=== PATIENT | male | born 1950 | race Hispanic/Latino ===

== ENCOUNTER 2022-08-25 16:23 | Inpatient (IN) | payer MEDICARE, OTHER ==
[~2022-08-25] VITALS: Ht 172.7 cm; Wt 65.3 kg
[2022-08-25 18:02] VITALS: BP 107/77
[2022-08-25] MEDS ORDERED: NITROGLYCERIN 0.4 MG SL TAB SL PRN (18:30)
[2022-08-25] MEDS ORDERED: MAG/ALUM/SIMETH 30 ML UDCUP PO PRN (18:30)
[2022-08-25] MEDS ORDERED: DIPHENHYDRAMINE HCL 25 MG CAPSULE PO PRN (18:30)
[2022-08-25] MEDS ORDERED: GUAIFENESIN-DM 200/20 MG 10 ML PO PRN (18:30)
[2022-08-25] MEDS ORDERED: HYDROMORPHONE 1 MG INJ IV PRN (18:30)
[2022-08-25] MEDS ORDERED: DiphenhydrAMINE HCL 50 MG/ML VIAL IV PRN (18:30)
[2022-08-25] MEDS ORDERED: ACETAMINOPHEN 325 MG TAB PO PRN ×2 (18:30)
[2022-08-25] MEDS ORDERED: ONDANSETRON 4MG INJ IV PRN (18:30)
[2022-08-25] MEDS ORDERED: LACTULOSE 20 GM/30 ML UDCUP PO PRN (18:30)
[2022-08-25] MEDS ORDERED: POTASSIUM CHLORIDE 20MEQ/100ML 100 ML IV PRN (18:30)
[2022-08-25] MEDS ORDERED: LIDOCAINE HCL-MPF 1% 2ML VIAL IV PRN (18:30)
[2022-08-25] MEDS ORDERED: HYDROCODONE/ACETAMINOPHEN 5/325 MG TAB PO PRN ×2 (18:30)
[2022-08-25 18:58] LABS: BASOPHILS % (AUTO) 0.4 % (0.0-5.0); EOSINOPHILS % (AUTO) 0.4 % (0.0-8.0); HEMATOCRIT 44.2 % (42-54); MEAN CORPUSCULAR HEMOGLOBIN 29.4 pg (27.0-33.0); MEAN CORPUSCULAR HGB CONC 30.8 g/dL (32.0-36.0); MEAN CORPUSCULAR VOLUME 95.5 fL (79-99); MONOCYTES % (AUTO) 10.1 % (3.0-13.0); NEUTROPHILS % (AUTO) 74.6 % (40.0-77.0); PLATELET COUNT (AUTO) 152 K/uL (130-400); RED BLOOD CELL COUNT(AUTO) 4.63 MIL/uL (4.50-6.20); RED CELL DISTRIBUTION WIDTH 16.5 % (11.0-15.5); WHITE BLOOD COUNT (AUTO) 8.2 K/uL (4.8-10.8)
[2022-08-25 19:09] LABS: HEMOGLOBIN A1C 5.3 % (4.0-6.0)
[2022-08-25 19:16] LABS: INR 1.26 (0.85-1.15); PROTHROMBIN TIME 13.6 SEC (9.6-11.6)
[2022-08-25 19:18] LABS: PARTIAL THROMBOPLASTIN TIME 33.9 SEC (26.3-35.5)
[2022-08-25 19:19] LABS: B-TYPE NATRIURETIC PEPTIDE 1560 pg/mL (0-100)
[2022-08-25 19:25] LABS: ALBUMIN 2.6 g/dL (3.5-5.0); CREATININE 1.8 mg/dL (0.5-1.5); MAGNESIUM 1.8 mg/dL (1.80-2.40); PHOSPHORUS 3.5 mg/dL (2.5-4.9); POTASSIUM 4.4 mmol/L (3.5-5.1); THYROID STIMULATING HORMONE 4.24 uIU/mL (0.36-3.74); TOTAL PROTEIN, SERUM 6.3 g/dL (6.0-8.3)
[2022-08-25 19:51] VITALS: BP 122/86
[2022-08-25] MEDS: ATORVASTATIN 40 MG TABLET PO SCH (20:01)
[2022-08-25] MEDS: METOPROLOL TARTRATE 25 MG TAB PO SCH (20:01)
[2022-08-25] MEDS: FAMOTIDINE 20MG TAB PO SCH (20:02)
[2022-08-25] MEDS: HEPARIN 5,000 UNIT VIAL SQ SCH (20:09)
[2022-08-25] MEDS: FUROSEMIDE 40MG VIAL IV SCH (20:10)
[2022-08-25] MEDS ORDERED: FAMOTIDINE 20MG VIAL IV PRN (21:00)
[2022-08-25] MEDS ORDERED: ATOR10TA69 PO (21:41)
[2022-08-25] MEDS ORDERED: ASPI-1521 PO (21:41)
[2022-08-25] MEDS ORDERED: FURO20TA4 PO (21:41)
[2022-08-25] MEDS ORDERED: CHOL500050 PO (21:41)
[2022-08-25] MEDS ORDERED: OMEP40CA21 PO (21:41)
[2022-08-25] MEDS ORDERED: METO25 PO (21:41)
[2022-08-26] VITALS (7 sets, daily range): BP systolic 92–110; BP diastolic 52–72
[2022-08-26 02:58] LABS: BASOPHILS % (AUTO) 0.4 % (0.0-5.0); EOSINOPHILS % (AUTO) 1.1 % (0.0-8.0); HEMATOCRIT 41.4 % (42-54); LYMPHOCYTES % (AUTO) 19.6 % (21.0-51.0); MEAN CORPUSCULAR HEMOGLOBIN 29.6 pg (27.0-33.0); MEAN CORPUSCULAR HGB CONC 31.2 g/dL (32.0-36.0); MONOCYTES % (AUTO) 13.2 % (3.0-13.0); NEUTROPHILS % (AUTO) 65.4 % (40.0-77.0); PLATELET COUNT (AUTO) 141 K/uL (130-400); RED BLOOD CELL COUNT(AUTO) 4.36 MIL/uL (4.50-6.20); RED CELL DISTRIBUTION WIDTH 16.5 % (11.0-15.5); WHITE BLOOD COUNT (AUTO) 7.4 K/uL (4.8-10.8)
[2022-08-26 03:18] LABS: CREATININE 1.7 mg/dL (0.5-1.5); POTASSIUM 3.6 mmol/L (3.5-5.1)
[2022-08-26] MEDS: FUROSEMIDE 40MG VIAL IV SCH ×3 (03:25→21:00)
[2022-08-26] MEDS: ASPIRIN 81MG CHEW TAB PO SCH (08:50)
[2022-08-26] MEDS: METOPROLOL TARTRATE 25 MG TAB PO SCH ×2 (08:55→21:00)
[2022-08-26] MEDS: CLOPIDOGREL 75MG TAB PO SCH (08:55)
[2022-08-26] MEDS: HEPARIN 5,000 UNIT VIAL SQ SCH ×3 (08:56→21:10)
[2022-08-26] MEDS: FAMOTIDINE 20MG TAB PO SCH ×2 (08:56→21:00)
[2022-08-26 17:48] LABS: MAGNESIUM 1.7 mg/dL (1.80-2.40); POTASSIUM 3.9 mmol/L (3.5-5.1)
[2022-08-26] MEDS: MAGNESIUM 2GM PREMIX 50ML 50 ML IV PRN (18:12)
[2022-08-26 20:39] LABS: HEMATOCRIT 44.2 % (42-54); MEAN CORPUSCULAR HEMOGLOBIN 29.4 pg (27.0-33.0); MEAN CORPUSCULAR HGB CONC 31.9 g/dL (32.0-36.0); MEAN CORPUSCULAR VOLUME 92.1 fL (79-99); PLATELET COUNT (AUTO) 148 K/uL (130-400); RED CELL DISTRIBUTION WIDTH 16.5 % (11.0-15.5); WHITE BLOOD COUNT (AUTO) 7.9 K/uL (4.8-10.8)
[2022-08-26 20:44] LABS: BASOPHILS % (AUTO) 0.5 % (0.0-5.0); EOSINOPHILS % (AUTO) 0.5 % (0.0-8.0); LYMPHOCYTES % (AUTO) 19.1 % (21.0-51.0); MONOCYTES % (AUTO) 11.9 % (3.0-13.0); NEUTROPHILS % (AUTO) 67.7 % (40.0-77.0)
[2022-08-26 21:01] LABS: MAGNESIUM 2.4 mg/dL (1.80-2.40); POTASSIUM 3.3 mmol/L (3.5-5.1)
[2022-08-26] MEDS: ATORVASTATIN 40 MG TABLET PO SCH (21:01)
[2022-08-27] MEDS: FUROSEMIDE 40MG VIAL IV SCH ×3 (03:39→20:00)
[2022-08-27 04:02] LABS: BASOPHILS % (AUTO) 0.7 % (0.0-5.0); EOSINOPHILS % (AUTO) 0.7 % (0.0-8.0); HEMATOCRIT 43.7 % (42-54); MEAN CORPUSCULAR HEMOGLOBIN 29.5 pg (27.0-33.0); MEAN CORPUSCULAR HGB CONC 30.9 g/dL (32.0-36.0); MEAN CORPUSCULAR VOLUME 95.6 fL (79-99); MONOCYTES % (AUTO) 14.4 % (3.0-13.0); PLATELET COUNT (AUTO) 151 K/uL (130-400); RED BLOOD CELL COUNT(AUTO) 4.57 MIL/uL (4.50-6.20); RED CELL DISTRIBUTION WIDTH 16.7 % (11.0-15.5); WHITE BLOOD COUNT (AUTO) 8.3 K/uL (4.8-10.8)
[2022-08-27 04:20] LABS: CREATININE 2.1 mg/dL (0.5-1.5); POTASSIUM 3.3 mmol/L (3.5-5.1)
[2022-08-27 05:03] VITALS: BP 91/59
[2022-08-27] MEDS: KCL 20 MEQ ERTAB PO PRN (05:38)
[2022-08-27 08:00] VITALS: BP 101/59
[2022-08-27] MEDS: KCL 20 MEQ ERTAB PO SCH (08:58)
[2022-08-27] MEDS: ASPIRIN 81MG CHEW TAB PO SCH (08:58)
[2022-08-27] MEDS: HEPARIN 5,000 UNIT VIAL SQ SCH ×3 (09:00→20:05)
[2022-08-27] MEDS: METOPROLOL TARTRATE 25 MG TAB PO SCH ×2 (09:03→20:00)
[2022-08-27] MEDS: CLOPIDOGREL 75MG TAB PO SCH (09:03)
[2022-08-27] MEDS: FAMOTIDINE 20MG TAB PO SCH ×2 (09:03→20:01)
[2022-08-27 12:00] VITALS: BP 111/76
[2022-08-27 16:00] VITALS: BP 103/75
[2022-08-27 19:00] VITALS: BP 102/70
[2022-08-27] MEDS: ATORVASTATIN 40 MG TABLET PO SCH (20:01)
[2022-08-28 00:03] VITALS: BP 95/65
[2022-08-28 03:03] VITALS: BP 97/50
[2022-08-28 04:16] LABS: BASOPHILS % (AUTO) 0.6 % (0.0-5.0); EOSINOPHILS % (AUTO) 0.5 % (0.0-8.0); HEMATOCRIT 43.3 % (42-54); LYMPHOCYTES % (AUTO) 23.5 % (21.0-51.0); MEAN CORPUSCULAR HEMOGLOBIN 29.4 pg (27.0-33.0); MEAN CORPUSCULAR HGB CONC 31.4 g/dL (32.0-36.0); MEAN CORPUSCULAR VOLUME 93.5 fL (79-99); MONOCYTES % (AUTO) 13.4 % (3.0-13.0); NEUTROPHILS % (AUTO) 61.7 % (40.0-77.0); PLATELET COUNT (AUTO) 149 K/uL (130-400); RED BLOOD CELL COUNT(AUTO) 4.63 MIL/uL (4.50-6.20); RED CELL DISTRIBUTION WIDTH 16.5 % (11.0-15.5); WHITE BLOOD COUNT (AUTO) 7.7 K/uL (4.8-10.8)
[2022-08-28 04:26] LABS: CREATININE 2.2 mg/dL (0.5-1.5); POTASSIUM 3.8 mmol/L (3.5-5.1)
[2022-08-28 08:08] VITALS: BP 100/59
[2022-08-28] MEDS: FUROSEMIDE 40MG VIAL IV SCH ×2 (08:38→08:50)
[2022-08-28] MEDS: ASPIRIN 81MG CHEW TAB PO SCH (08:39)
[2022-08-28] MEDS: METOPROLOL TARTRATE 25 MG TAB PO SCH ×3 (08:40→20:11)
[2022-08-28] MEDS: FAMOTIDINE 20MG TAB PO SCH ×2 (08:40→20:11)
[2022-08-28] MEDS: CLOPIDOGREL 75MG TAB PO SCH (08:40)
[2022-08-28] MEDS: KCL 20 MEQ ERTAB PO SCH (08:40)
[2022-08-28] MEDS: HEPARIN 5,000 UNIT VIAL SQ SCH ×3 (08:56→20:12)
[2022-08-28 11:58] VITALS: BP 97/52
[2022-08-28 15:58] VITALS: BP 92/64
[2022-08-28 19:03] VITALS: BP 109/70
[2022-08-28] MEDS: ATORVASTATIN 40 MG TABLET PO SCH (20:11)
[2022-08-29] VITALS (7 sets, daily range): BP systolic 90–104; BP diastolic 58–74
[2022-08-29 04:23] LABS: BASOPHILS % (AUTO) 0.5 % (0.0-5.0); EOSINOPHILS % (AUTO) 0.6 % (0.0-8.0); HEMATOCRIT 42.7 % (42-54); MEAN CORPUSCULAR HEMOGLOBIN 29.5 pg (27.0-33.0); MEAN CORPUSCULAR HGB CONC 31.4 g/dL (32.0-36.0); MEAN CORPUSCULAR VOLUME 93.8 fL (79-99); MONOCYTES % (AUTO) 11.4 % (3.0-13.0); PLATELET COUNT (AUTO) 154 K/uL (130-400); RED BLOOD CELL COUNT(AUTO) 4.55 MIL/uL (4.50-6.20); RED CELL DISTRIBUTION WIDTH 16.6 % (11.0-15.5); WHITE BLOOD COUNT (AUTO) 8.5 K/uL (4.8-10.8)
[2022-08-29 04:42] LABS: CREATININE 2.1 mg/dL (0.5-1.5); PHOSPHORUS 3.7 mg/dL (2.5-4.9)
[2022-08-29 05:15] LABS: CREATININE,URINE RANDOM 166 mg/dL (30-135); SODIUM,URINE RANDOM 29 mmol/l (40-220)
[2022-08-29] MEDS: ASPIRIN 81MG CHEW TAB PO SCH (08:39)
[2022-08-29] MEDS: KCL 20 MEQ ERTAB PO SCH (08:39)
[2022-08-29] MEDS: CLOPIDOGREL 75MG TAB PO SCH (08:39)
[2022-08-29] MEDS: FAMOTIDINE 20MG TAB PO SCH ×2 (08:39→20:42)
[2022-08-29] MEDS: FUROSEMIDE 40MG VIAL IV SCH (08:40)
[2022-08-29] MEDS: HEPARIN 5,000 UNIT VIAL SQ SCH ×3 (08:40→21:05)
[2022-08-29] MEDS: METOPROLOL TARTRATE 25 MG TAB PO SCH ×2 (09:00→20:41)
[2022-08-29] MEDS: ATORVASTATIN 40 MG TABLET PO SCH (20:41)
[2022-08-30 00:21] VITALS: BP 99/58
[2022-08-30 05:36] VITALS: BP 105/78
[2022-08-30 08:02] VITALS: BP 98/57
[2022-08-30 08:29] LABS: CREATININE 1.9 mg/dL (0.5-1.5); POTASSIUM 3.3 mmol/L (3.5-5.1)
[2022-08-30] MEDS: FUROSEMIDE 40MG VIAL IV SCH (09:00)
[2022-08-30] MEDS: KCL 20 MEQ ERTAB PO SCH (09:00)
[2022-08-30] MEDS: FAMOTIDINE 20MG TAB PO SCH ×2 (09:00→21:01)
[2022-08-30] MEDS: ASPIRIN 81MG CHEW TAB PO SCH (09:00)
[2022-08-30] MEDS: CLOPIDOGREL 75MG TAB PO SCH (09:00)
[2022-08-30] MEDS: HEPARIN 5,000 UNIT VIAL SQ SCH ×3 (09:00→21:03)
[2022-08-30] MEDS ORDERED: REGADENOSON 0.4 MG/5 ML PF SYG IVP SCH (11:00)
[2022-08-30 12:05] VITALS: BP 98/60
[2022-08-30] MEDS: POTASSIUM CHLORIDE 10% ELIXIR 20 MEQ/15 ML UDCUP PO PRN ×2 (13:30→15:32)
[2022-08-30 16:05] VITALS: BP 96/66
[2022-08-30 19:52] VITALS: BP 96/68
[2022-08-30] MEDS: METOPROLOL TARTRATE 25 MG TAB PO SCH (20:51)
[2022-08-30] MEDS: ATORVASTATIN 40 MG TABLET PO SCH (21:01)
[2022-08-31] VITALS (7 sets, daily range): BP systolic 96–107; BP diastolic 57–75
[2022-08-31 07:46] LABS: CREATININE 1.8 mg/dL (0.5-1.5); POTASSIUM 4.1 mmol/L (3.5-5.1)
[2022-08-31] MEDS: SPIRONOLACTONE 25 MG TAB PO SCH (09:50)
[2022-08-31] MEDS: ASPIRIN 81MG CHEW TAB PO SCH (09:51)
[2022-08-31] MEDS: METOPROLOL TARTRATE 25 MG TAB PO SCH ×2 (09:52→21:35)
[2022-08-31] MEDS: KCL 20 MEQ ERTAB PO SCH (09:52)
[2022-08-31] MEDS: FUROSEMIDE 40 MG TABLET PO SCH (09:52)
[2022-08-31] MEDS: CLOPIDOGREL 75MG TAB PO SCH (09:53)
[2022-08-31] MEDS: FAMOTIDINE 20MG TAB PO SCH ×2 (09:53→21:35)
[2022-08-31] MEDS: HEPARIN 5,000 UNIT VIAL SQ SCH ×3 (10:00→21:39)
[2022-08-31] MEDS: ATORVASTATIN 40 MG TABLET PO SCH (21:35)
[2022-09-01 00:03] VITALS: BP 95/41
[2022-09-01 03:03] VITALS: BP 91/50
[2022-09-01 04:16] LABS: BASOPHILS % (AUTO) 0.4 % (0.0-5.0); EOSINOPHILS % (AUTO) 0.6 % (0.0-8.0); HEMATOCRIT 43.4 % (42-54); LYMPHOCYTES % (AUTO) 19.5 % (21.0-51.0); MEAN CORPUSCULAR HEMOGLOBIN 29.5 pg (27.0-33.0); MEAN CORPUSCULAR HGB CONC 31.1 g/dL (32.0-36.0); MEAN CORPUSCULAR VOLUME 94.8 fL (79-99); MONOCYTES % (AUTO) 14.2 % (3.0-13.0); PLATELET COUNT (AUTO) 151 K/uL (130-400); RED BLOOD CELL COUNT(AUTO) 4.58 MIL/uL (4.50-6.20); RED CELL DISTRIBUTION WIDTH 16.8 % (11.0-15.5); WHITE BLOOD COUNT (AUTO) 6.7 K/uL (4.8-10.8)
[2022-09-01 04:25] LABS: CREATININE 1.9 mg/dL (0.5-1.5); MAGNESIUM 1.9 mg/dL (1.80-2.40); PHOSPHORUS 2.9 mg/dL (2.5-4.9); POTASSIUM 4.1 mmol/L (3.5-5.1)
[2022-09-01 04:58] LABS: B-TYPE NATRIURETIC PEPTIDE 1570 pg/mL (0-100)
[2022-09-01] MEDS: MAGNESIUM 2GM PREMIX 50ML 50 ML IV PRN (06:20)
[2022-09-01] MEDS ORDERED: FUROSEMIDE 40MG VIAL IV SCH (07:30)
[2022-09-01 08:20] VITALS: BP 101/69
[2022-09-01] MEDS: METOPROLOL SUCCINATE 25 MG TAB.SR.24H PO SCH (08:22)
[2022-09-01] MEDS: FUROSEMIDE 40 MG TABLET PO SCH (09:00)
[2022-09-01] MEDS: ASPIRIN 81MG CHEW TAB PO SCH (09:00)
[2022-09-01] MEDS: KCL 20 MEQ ERTAB PO SCH (09:00)
[2022-09-01] MEDS: HEPARIN 5,000 UNIT VIAL SQ SCH ×3 (09:00→20:58)
[2022-09-01] MEDS: SPIRONOLACTONE 25 MG TAB PO SCH (09:00)
[2022-09-01] MEDS: FAMOTIDINE 20MG TAB PO SCH ×2 (09:00→20:51)
[2022-09-01 12:17] VITALS: BP 100/65
[2022-09-01] MEDS: CLOPIDOGREL 75MG TAB PO SCH (14:31)
[2022-09-01 16:15] VITALS: BP 92/62
[2022-09-01 20:00] VITALS: BP 117/79
[2022-09-01] MEDS: ATORVASTATIN 40 MG TABLET PO SCH (20:51)
[2022-09-02] VITALS (7 sets, daily range): BP systolic 95–118; BP diastolic 62–85
[2022-09-02] MEDS: HEPARIN 5,000 UNIT VIAL SQ SCH ×3 (09:50→20:14)
[2022-09-02] MEDS: CLOPIDOGREL 75MG TAB PO SCH (09:50)
[2022-09-02] MEDS: FAMOTIDINE 20MG TAB PO SCH ×2 (09:50→20:13)
[2022-09-02] MEDS: SPIRONOLACTONE 25 MG TAB PO SCH (09:51)
[2022-09-02] MEDS: METOPROLOL SUCCINATE 25 MG TAB.SR.24H PO SCH (09:51)
[2022-09-02] MEDS: ASPIRIN 81MG CHEW TAB PO SCH (09:51)
[2022-09-02] MEDS: KCL 20 MEQ ERTAB PO SCH (09:51)
[2022-09-02] MEDS: FUROSEMIDE 40 MG TABLET PO SCH (09:57)
[2022-09-02 17:43] LABS: BASOPHILS % (AUTO) 0.7 % (0.0-5.0); EOSINOPHILS % (AUTO) 0.4 % (0.0-8.0); LYMPHOCYTES % (AUTO) 19.8 % (21.0-51.0); MEAN CORPUSCULAR HEMOGLOBIN 29.5 pg (27.0-33.0); MEAN CORPUSCULAR HGB CONC 31.4 g/dL (32.0-36.0); MONOCYTES % (AUTO) 13.6 % (3.0-13.0); NEUTROPHILS % (AUTO) 65.4 % (40.0-77.0); PLATELET COUNT (AUTO) 139 K/uL (130-400); RED BLOOD CELL COUNT(AUTO) 4.68 MIL/uL (4.50-6.20); RED CELL DISTRIBUTION WIDTH 16.6 % (11.0-15.5); WHITE BLOOD COUNT (AUTO) 7.3 K/uL (4.8-10.8)
[2022-09-02 17:54] LABS: POTASSIUM 3.4 mmol/L (3.5-5.1)
[2022-09-02 17:56] LABS: MAGNESIUM 2.2 mg/dL (1.80-2.40); PHOSPHORUS 3.2 mg/dL (2.5-4.9)
[2022-09-02] MEDS: MIRTAZAPINE 15 MG TABLET PO SCH (20:13)
[2022-09-02] MEDS: ATORVASTATIN 40 MG TABLET PO SCH (20:13)
[2022-09-03 00:23] LABS: B-TYPE NATRIURETIC PEPTIDE 1585 pg/mL (0-100)
[2022-09-03 04:18] VITALS: BP 105/72
[2022-09-03 04:51] LABS: HEMATOCRIT 42.9 % (42-54); MEAN CORPUSCULAR HEMOGLOBIN 29.1 pg (27.0-33.0); MEAN CORPUSCULAR HGB CONC 31.5 g/dL (32.0-36.0); MEAN CORPUSCULAR VOLUME 92.5 fL (79-99); RED BLOOD CELL COUNT(AUTO) 4.64 MIL/uL (4.50-6.20); RED CELL DISTRIBUTION WIDTH 16.7 % (11.0-15.5); WHITE BLOOD COUNT (AUTO) 7.1 K/uL (4.8-10.8)
[2022-09-03 05:27] LABS: CREATININE 1.9 mg/dL (0.5-1.5); POTASSIUM 3.2 mmol/L (3.5-5.1)
[2022-09-03] MEDS: POTASSIUM CHLORIDE 10% ELIXIR 20 MEQ/15 ML UDCUP PO PRN ×2 (06:36→11:55)
[2022-09-03] MEDS: HEPARIN 5,000 UNIT VIAL SQ SCH ×3 (08:46→20:12)
[2022-09-03] MEDS: ASPIRIN 81MG CHEW TAB PO SCH (08:48)
[2022-09-03] MEDS: SPIRONOLACTONE 25 MG TAB PO SCH (08:48)
[2022-09-03] MEDS: CLOPIDOGREL 75MG TAB PO SCH (08:49)
[2022-09-03] MEDS: FAMOTIDINE 20MG TAB PO SCH ×2 (08:49→20:11)
[2022-09-03] MEDS: METOPROLOL SUCCINATE 25 MG TAB.SR.24H PO SCH (08:49)
[2022-09-03 08:55] VITALS: BP 103/63
[2022-09-03] MEDS: KCL 20 MEQ ERTAB PO PRN (10:04)
[2022-09-03 11:46] VITALS: BP 100/73
[2022-09-03 15:41] LABS: MAGNESIUM 2.1 mg/dL (1.80-2.40); POTASSIUM 4.3 mmol/L (3.5-5.1)
[2022-09-03 16:51] VITALS: BP 109/77
[2022-09-03] MEDS: ATORVASTATIN 40 MG TABLET PO SCH (20:10)
[2022-09-03] MEDS: MIRTAZAPINE 15 MG TABLET PO SCH (20:10)
[2022-09-03 20:11] VITALS: BP 124/80
[2022-09-03 23:04] VITALS: BP 122/65
[2022-09-04] VITALS (16 sets, daily range): BP systolic 95–120; BP diastolic 44–88
[2022-09-04 04:05] LABS: CREATININE 1.9 mg/dL (0.5-1.5); POTASSIUM 3.8 mmol/L (3.5-5.1)
[2022-09-04 04:11] LABS: INR 1.25 (0.85-1.15); PROTHROMBIN TIME 13.5 SEC (9.6-11.6)
[2022-09-04] MEDS: METOPROLOL SUCCINATE 25 MG TAB.SR.24H PO SCH (07:55)
[2022-09-04] MEDS: CLOPIDOGREL 75MG TAB PO SCH (09:00)
[2022-09-04] MEDS: ASPIRIN 81MG CHEW TAB PO SCH (09:00)
[2022-09-04] MEDS: HEPARIN 5,000 UNIT VIAL SQ SCH ×3 (09:00→20:59)
[2022-09-04] MEDS ORDERED: MIDAZOLAM HCL 1 MG/ML 2ML VIAL ONE (10:28)
[2022-09-04] MEDS ORDERED: LIDOCAINE HCL 400MG/20ML VIAL ONE (10:28)
[2022-09-04] MEDS ORDERED: FENTANYL CITRATE PF 50 MCG/1 ML 2ML VIAL ONE (10:28)
[2022-09-04] MEDS ORDERED: IOHEXOL 350 MG/ML 100ML INFUS..BTL IV ONE (10:29)
[2022-09-04] MEDS ORDERED: VERAPAMIL HCL 2.5 MG/ML VIAL ONE (10:29)
[2022-09-04] MEDS ORDERED: NITROGLYCERIN 50MG VIAL ONE (10:29)
[2022-09-04] MEDS ORDERED: HEPARIN 10,000 UNIT/10ML (1,000 UNIT/ML) VIAL ONE (10:29)
[2022-09-04] MEDS: 0.9%NACL 10ML VIAL IVP SCH ×2 (12:00→20:50)
[2022-09-04] MEDS: FAMOTIDINE 20MG TAB PO SCH ×2 (12:34→20:50)
[2022-09-04] MEDS: SPIRONOLACTONE 25 MG TAB PO SCH (12:34)
[2022-09-04] MEDS ORDERED: NACL IV ONE (17:00)
[2022-09-04] MEDS ORDERED: SPIR25TA6 PO (17:59)
[2022-09-04] MEDS ORDERED: METO25TA3 PO (17:59)
[2022-09-04] MEDS ORDERED: MIRT-120 PO (17:59)
[2022-09-04] MEDS ORDERED: ASPI-1521 PO (17:59)
[2022-09-04] MEDS ORDERED: FURO20TA4 PO (17:59)
[2022-09-04] MEDS ORDERED: CLOP-31 PO (17:59)
[2022-09-04] MEDS ORDERED: ATOR40TA71 PO (17:59)
[2022-09-04] MEDS: ATORVASTATIN 40 MG TABLET PO SCH (20:50)
[2022-09-04] MEDS: MIRTAZAPINE 15 MG TABLET PO SCH (20:55)
[2022-09-05 00:23] VITALS: BP 96/66
[2022-09-05 00:27] VITALS: BP 135/92
[2022-09-05] MEDS: 0.9%NACL 10ML VIAL IVP SCH ×2 (04:00→13:10)
[2022-09-05 04:27] VITALS: BP 99/50
[2022-09-05 07:26] VITALS: BP 112/83
[2022-09-05] MEDS: HEPARIN 5,000 UNIT VIAL SQ SCH (09:38)
[2022-09-05] MEDS: METOPROLOL SUCCINATE 25 MG TAB.SR.24H PO SCH (09:42)
[2022-09-05] MEDS: FAMOTIDINE 20MG TAB PO SCH (09:42)
[2022-09-05] MEDS: POTASSIUM CHLORIDE 10% ELIXIR 20 MEQ/15 ML UDCUP PO PRN (09:42)
[2022-09-05] MEDS: ASPIRIN 81MG CHEW TAB PO SCH (09:43)
[2022-09-05] MEDS: SPIRONOLACTONE 25 MG TAB PO SCH (09:43)
[2022-09-05] MEDS: CLOPIDOGREL 75MG TAB PO SCH (09:44)
[2022-09-05 11:38] VITALS: BP 107/76
[2022-09-05] MEDS ORDERED: METOCLOPRAMIDE 10 MG TABLET PO SCH (17:00)
== END 2022-09-05 15:38 | disposition home or self-care (01) | DRG 291 ==
LOC: EDH 16:23 → DIRECT 16:24 → UNDOADMIN 16:35 → DIRECT 17:30 → 2DH 17:30
PROVIDERS: ADMIT Internal Medicine; ATTEND Internal Medicine
PROC: 4A12XM4 Monitoring of Cardiac Stress, External Approach (ICD-10-PCS; principal; 2022-09-04)
PROC: 3E033HZ Introduction of Radioactive Substance into Peripheral Vein, Percutaneous Approach (ICD-10-PCS; 2022-09-04)
DX: I13.0 Hypertensive heart and chronic kidney disease with heart failure and stage 1 through stage 4 chronic kidney disease, or unspecified chronic kidney disease (principal); I50.43 Acute on chronic combined systolic (congestive) and diastolic (congestive) heart failure; N17.9 Acute kidney failure, unspecified; I45.2 Bifascicular block; R64 Cachexia; E78.5 Hyperlipidemia, unspecified; E11.22 Type 2 diabetes mellitus with diabetic chronic kidney disease; I71.40 Abdominal aortic aneurysm, without rupture, unspecified; I08.1 Rheumatic disorders of both mitral and tricuspid valves; E78.00 Pure hypercholesterolemia, unspecified; E86.9 Volume depletion, unspecified; E87.5 Hyperkalemia; F17.200 Nicotine dependence, unspecified, uncomplicated; F32.A Depression, unspecified; I25.10 Atherosclerotic heart disease of native coronary artery without angina pectoris; I25.2 Old myocardial infarction; I25.5 Ischemic cardiomyopathy; I71.43 Infrarenal abdominal aortic aneurysm, without rupture; I95.89 Other hypotension; K40.90 Unilateral inguinal hernia, without obstruction or gangrene, not specified as recurrent; K57.30 Diverticulosis of large intestine without perforation or abscess without bleeding; K76.89 Other specified diseases of liver; K80.20 Calculus of gallbladder without cholecystitis without obstruction; K82.8 Other specified diseases of gallbladder; N18.30 Chronic kidney disease, stage 3 unspecified; Z79.82 Long term (current) use of aspirin; Z79.899 Other long term (current) drug therapy; Z86.79 Personal history of other diseases of the circulatory system; Z68.21 Body mass index [BMI] 21.0-21.9, adult
CPT/HCPCS: 36415; 71045; 74176; 76700; 76770; 78452; 80048; 80053; 82550; 82570; 82948; 83036; 83735; 83874; 83880; 84100; 84132; 84300; 84439; 84443; 84484; 85025; 85027; 85610; 85730; 93005; 93017; 93306; 93356; 93458; 96374; 99156; 99157; A9500; C1769; G0378; J1644; J1940; J2250; J2785; J3010; J3475; J3490; Q9967

== ENCOUNTER 2022-09-21 12:24 | Inpatient (IN) | payer OTHER ==
[~2022-09-21] VITALS: Ht 172.7 cm; Wt 65.0 kg
[2022-09-21] VITALS (39 sets, daily range): BP systolic 73–118; BP diastolic 37–83
[~2022-09-21 12:24] MED LIST: ASPI-1521 PO; ATOR40TA71 PO; CHOL500050 PO; CLOP-31 PO; FURO20TA4 PO; METO25TA3 PO; MIRT-120 PO; OMEP40CA21 PO; SPIR25TA6 PO
[2022-09-21] MEDS ORDERED: IOHEXOL-350 75 ML VIAL IV ONE (13:32)
[2022-09-21] MEDS ORDERED: SODIUM BICARB 50MEQ 50ML VIAL 50 ML ONE (13:32)
[2022-09-21] MEDS ORDERED: HEPARIN 10,000 UNIT/10ML (1,000 UNIT/ML) VIAL ONE ×2 (13:32→15:41)
[2022-09-21] MEDS ORDERED: LIDOCAINE HCL 400MG/20ML VIAL ONE (13:32)
[2022-09-21 14:25] LABS: BASOPHILS % (AUTO) 0.1 % (0.0-5.0); EOSINOPHILS % (AUTO) 0.1 % (0.0-8.0); HEMATOCRIT 43.3 % (42-54); MEAN CORPUSCULAR HEMOGLOBIN 29.2 pg (27.0-33.0); MEAN CORPUSCULAR HGB CONC 30.5 g/dL (32.0-36.0); MEAN CORPUSCULAR VOLUME 95.8 fL (79-99); MONOCYTES % (AUTO) 8.9 % (3.0-13.0); NEUTROPHILS % (AUTO) 83.3 % (40.0-77.0); PLATELET COUNT (AUTO) 80 K/uL (130-400); RED BLOOD CELL COUNT(AUTO) 4.52 MIL/uL (4.50-6.20); RED CELL DISTRIBUTION WIDTH 18.6 % (11.0-15.5); WHITE BLOOD COUNT (AUTO) 14.5 K/uL (4.8-10.8)
[2022-09-21] MEDS ORDERED: ROCURONIUM 10MG/1ML SYR 10 MG/ML ML ONE ×2 (14:27→15:01)
[2022-09-21] MEDS ORDERED: PHENYLEPHRINE HCL 10 MG/ML 1ML VIAL IV ONE (14:27)
[2022-09-21] MEDS ORDERED: FENTANYL CITRATE PF 50 MCG/1 ML 2ML VIAL ONE (14:27)
[2022-09-21] MEDS ORDERED: PROPOFOL 10 MG/ML 20ML VIAL IV ONE ×2 (14:27→17:35)
[2022-09-21] MEDS ORDERED: ESMOLOL HCL 10 MG/ML 10 ML VIAL ONE (14:29)
[2022-09-21 14:31] LABS: CREATININE 1.6 mg/dL (0.5-1.5); POTASSIUM 3.2 mmol/L (3.5-5.1)
[2022-09-21] MEDS ORDERED: POTASSIUM CHLORIDE 20MEQ/100ML 100 ML IV ONE (14:42)
[2022-09-21] MEDS ORDERED: CEFAZOLIN SODIUM 1 GM VIAL ONE (14:49)
[2022-09-21] MEDS ORDERED: VASOPRESSIN 20 UNITS/ML 1ML VIAL ONE (15:44)
[2022-09-21] MEDS ORDERED: EPINEPHRINE PF 1MG (1:1,000) 1 MG/ML AMP ONE ×2 (15:50→16:11)
[2022-09-21] MEDS ORDERED: SODIUM BICARB 50MEQ 50ML VIAL 0 ML ONE (15:56)
[2022-09-21 16:11] LABS: ABG BASE EXCESS 19.7 mmol/L (-2.0-3.0); ABG HCO3 42.9 mmol/L (21.0-28.0); ABG OXYGEN SATURATION 99.3 % (95.0-99.0); ABG PCO2 43 mmHg (35-48)
[2022-09-21 16:52] LABS: ABG BASE EXCESS -6.7 mmol/L (-2.0-3.0); ABG HCO3 19.8 mmol/L (21.0-28.0); ABG OXYGEN SATURATION 99.5 % (95.0-99.0); ABG PCO2 43 mmHg (35-48)
[2022-09-21] MEDS ORDERED: PROTAMINE SULFATE 10 MG/ML 25ML VIAL IV ONE (16:52)
[2022-09-21] MEDS ORDERED: LIDOCAINE HCL-MPF 1% 2ML VIAL IV PRN (17:00)
[2022-09-21] MEDS ORDERED: DEXTROSE 50%-WATER 50 ML DISP.SYRIN IV PRN (17:00)
[2022-09-21] MEDS ORDERED: KCL 20 MEQ ERTAB PO PRN (17:00)
[2022-09-21] MEDS ORDERED: 0.9%NACL 1000ML 1,000 ML IV SCH (17:00)
[2022-09-21] MEDS ORDERED: PROPOFOL 500 MG/ 50ML VIAL IV PRN (17:00)
[2022-09-21] MEDS ORDERED: POTASSIUM CHLORIDE 10% ELIXIR 20 MEQ/15 ML UDCUP PO PRN (17:00)
[2022-09-21] MEDS ORDERED: GLUCAGON 1MG KIT 1 MG ML IM PRN (17:00)
[2022-09-21] MEDS ORDERED: PROPOFOL 1000 MG/100 ML 100 ML IV ONE (18:02)
[2022-09-21] MEDS ORDERED: PROPOFOL 1000 MG/100 ML 100 ML IV PRN (18:30)
[2022-09-21] MEDS ORDERED: PROPOFOL 1000 MG/100 ML IV PRN (18:30)
[2022-09-21 18:51] LABS: MAGNESIUM 1.7 mg/dL (1.80-2.40); POTASSIUM 3.2 mmol/L (3.5-5.1)
[2022-09-21 19:16] LABS: ABG BASE EXCESS 0.1 mmol/L (-2.0-3.0); ABG HCO3 23.1 mmol/L (21.0-28.0); ABG OXYGEN SATURATION 98.9 % (95.0-99.0); ABG PCO2 33 mmHg (35-48)
[2022-09-21] MEDS ORDERED: MAGNESIUM 2GM PREMIX 50ML 50 ML IV ONE (19:26)
[2022-09-21] MEDS: POTASSIUM CHLORIDE 20MEQ/100ML 100 ML IV PRN (20:26)
[2022-09-21] MEDS: NOREPINEPHRIN 4MG/NS 250ML 250 ML IV SCH (20:28)
[2022-09-21] MEDS: INSULIN HUMULIN R 100 UNIT/ML 3ML SQ SCH (20:29)
[2022-09-21] MEDS ORDERED: FENTANYL 2500MCG+NS 250ML IV.SOLN IV SCH (21:30)
[2022-09-21] MEDS ORDERED: FENTANYL 2500MCG+NS 250ML 250 ML IV ONE (21:34)
[2022-09-21 21:35] LABS: ABG BASE EXCESS 4.3 mmol/L (-2.0-3.0); ABG HCO3 26.8 mmol/L (21.0-28.0); ABG OXYGEN SATURATION 97.8 % (95.0-99.0); ABG PCO2 33 mmHg (35-48)
[2022-09-22] VITALS (98 sets, daily range): BP systolic 86–141; BP diastolic 34–88
[2022-09-22] MEDS: CEFAZOLIN SODIUM 2 GM VIAL IVP SCH ×2 (00:26→08:40)
[2022-09-22 02:11] LABS: HEMATOCRIT 42.4 % (42-54); MEAN CORPUSCULAR HEMOGLOBIN 29.7 pg (27.0-33.0); MEAN CORPUSCULAR HGB CONC 31.8 g/dL (32.0-36.0); MEAN CORPUSCULAR VOLUME 93.4 fL (79-99); NUCLEATED RED BLOOD CELLS 0.1 % (0.0-0.19); PLATELET COUNT (AUTO) 70 K/uL (130-400); RED BLOOD CELL COUNT(AUTO) 4.54 MIL/uL (4.50-6.20); RED CELL DISTRIBUTION WIDTH 19.2 % (11.0-15.5); WHITE BLOOD COUNT (AUTO) 15.1 K/uL (4.8-10.8)
[2022-09-22 02:19] LABS: CREATININE 1.8 mg/dL (0.5-1.5)
[2022-09-22 02:44] LABS: PLATELET MORPHOLOGY COMMENT SLIGHTLY DECREASED
[2022-09-22] MEDS: INSULIN HUMULIN R 100 UNIT/ML 3ML SQ SCH ×4 (05:33→21:00)
[2022-09-22] MEDS: NOREPINEPHRIN 4MG/NS 250ML 250 ML IV SCH ×4 (06:08→22:37)
[2022-09-22] MEDS: ASPIRIN 81 MG EC TAB PO SCH (08:40)
[2022-09-22] MEDS: FAMOTIDINE 20MG VIAL IV SCH (08:40)
[2022-09-22] MEDS: ATORVASTATIN 20 MG TABLET PO SCH (08:40)
[2022-09-22 10:51] LABS: ABG BASE EXCESS -0.8 mmol/L (-2.0-3.0); ABG HCO3 22.8 mmol/L (21.0-28.0); ABG OXYGEN SATURATION 99.2 % (95.0-99.0); ABG PCO2 35 mmHg (35-48)
[2022-09-23] VITALS (80 sets, daily range): BP systolic 78–146; BP diastolic 38–81
[2022-09-23] MEDS: NOREPINEPHRIN 4MG/NS 250ML 250 ML IV SCH (04:08)
[2022-09-23 04:15] LABS: BASOPHILS % (AUTO) 0.1 % (0.0-5.0); HEMATOCRIT 41.9 % (42-54); MEAN CORPUSCULAR HEMOGLOBIN 29.6 pg (27.0-33.0); MEAN CORPUSCULAR HGB CONC 30.8 g/dL (32.0-36.0); MEAN CORPUSCULAR VOLUME 96.1 fL (79-99); MONOCYTES % (AUTO) 8.7 % (3.0-13.0); NEUTROPHILS % (AUTO) 80.3 % (40.0-77.0); PLATELET COUNT (AUTO) 74 K/uL (130-400); RED BLOOD CELL COUNT(AUTO) 4.36 MIL/uL (4.50-6.20); WHITE BLOOD COUNT (AUTO) 16.2 K/uL (4.8-10.8)
[2022-09-23 04:22] LABS: CREATININE 1.7 mg/dL (0.5-1.5); MAGNESIUM 2.2 mg/dL (1.80-2.40); PHOSPHORUS 3.2 mg/dL (2.5-4.9); POTASSIUM 3.6 mmol/L (3.5-5.1)
[2022-09-23] MEDS: INSULIN HUMULIN R 100 UNIT/ML 3ML SQ SCH ×4 (07:26→19:44)
[2022-09-23] MEDS: ASPIRIN 81 MG EC TAB PO SCH (09:06)
[2022-09-23] MEDS: FAMOTIDINE 20MG VIAL IV SCH (09:06)
[2022-09-23] MEDS: ATORVASTATIN 20 MG TABLET PO SCH (09:06)
[2022-09-23] MEDS: SERTRALINE HCL 50 MG TABLET PO SCH (10:49)
[2022-09-23] MEDS: DRONABINOL 2.5 MG CAP PO SCH (10:49)
[2022-09-23] MEDS: POTASSIUM CHLORIDE 20MEQ/100ML 100 ML IV PRN (12:57)
[2022-09-23] MEDS ORDERED: LACTATED RINGERS 1000ML IV SCH (14:00)
[2022-09-23 14:13] LABS: BASOPHILS % (AUTO) 0.2 % (0.0-5.0); EOSINOPHILS % (AUTO) 0.1 % (0.0-8.0); LYMPHOCYTES % (AUTO) 12.3 % (21.0-51.0); MEAN CORPUSCULAR HEMOGLOBIN 29.3 pg (27.0-33.0); MEAN CORPUSCULAR HGB CONC 30.5 g/dL (32.0-36.0); MEAN CORPUSCULAR VOLUME 95.9 fL (79-99); MONOCYTES % (AUTO) 7.6 % (3.0-13.0); NEUTROPHILS % (AUTO) 79.4 % (40.0-77.0); PLATELET COUNT (AUTO) 44 K/uL (130-400); RED BLOOD CELL COUNT(AUTO) 3.86 MIL/uL (4.50-6.20); RED CELL DISTRIBUTION WIDTH 18.7 % (11.0-15.5); WHITE BLOOD COUNT (AUTO) 11.7 K/uL (4.8-10.8)
[2022-09-23] MEDS: LACTATED RINGERS 1000ML IV SCH (14:19)
[2022-09-23] MEDS ORDERED: 0.9%NACL 50ML IV SCH (14:30)
[2022-09-23 14:33] LABS: CREATININE 1.4 mg/dL (0.5-1.5); POTASSIUM 4.2 mmol/L (3.5-5.1)
[2022-09-23 14:47] LABS: ALBUMIN 1.6 g/dL (3.5-5.0); THYROID STIMULATING HORMONE 1.89 uIU/mL (0.36-3.74)
[2022-09-23] MEDS ORDERED: VANCOMYCIN 1.25 GM/250 ML BAG 250 ML IV ONE (15:00)
[2022-09-23] MEDS ORDERED: VANCOMYCIN PROTOCOL PER PHARMACY IV SCH (15:00)
[2022-09-23 15:20] LABS: APPEARANCE,URINE CLOUDY (CLEAR); BILIRUBIN,URINE 1 mg/dL (NEGATIVE); COLOR,URINE DARK-YELLOW (YELLOW); GLUCOSE, URINE (UA) NEGATIVE (NEGATIVE); KETONES,URINE NEGATIVE (NEGATIVE); LEUKOCYTE ESTERASE ,URINE 25 Leu/uL (NEGATIVE); NITRATE,URINE NEGATIVE (NEGATIVE); OCCULT BLOOD,URINE LARGE (NEGATIVE); PROTEIN,URINE 70 mg/dL (NEGATIVE); UROBILINOGEN,URINE 6 mg/dL (0.2-1.0)
[2022-09-23 16:02] LABS: BACTERIA,URINE RARE /HPF (None Seen); MUCUS,URINE FEW LPF (None Seen); OTHER CASTS, URINE 2 /LPF (None Seen); RBC,URINE >100 /HPF (0-1); SQUAMOUS EPITHELIAL CELL,UR RARE /HPF (0-2); WBC,URINE 26-50 /HPF (0-1); YEAST,URINE BUDDING FEW /HPF (None Seen)
[2022-09-23] MEDS: ZOSYN 3.375GM +NS 50ML IVPB SCH (17:19)
[2022-09-23] MEDS: MIRTAZAPINE 15 MG TABLET PO SCH (21:10)
[2022-09-23] MEDS ORDERED: NOREPINEPHRIN 4MG/NS 250ML 250 ML IV ONE (22:22)
[2022-09-23] MEDS ORDERED: NOREPINEPHRIN 4MG/NS 250ML 250 ML IV SCH (23:00)
[2022-09-24] VITALS (38 sets, daily range): BP systolic 84–118; BP diastolic 31–80
[2022-09-24] MEDS: ZOSYN 3.375GM +NS 50ML IVPB SCH ×3 (00:53→16:41)
[2022-09-24 04:15] LABS: BASOPHILS % (AUTO) 0.1 % (0.0-5.0); EOSINOPHILS % (AUTO) 0.1 % (0.0-8.0); HEMATOCRIT 39.7 % (42-54); LYMPHOCYTES % (AUTO) 8.6 % (21.0-51.0); MEAN CORPUSCULAR HEMOGLOBIN 29.6 pg (27.0-33.0); MEAN CORPUSCULAR HGB CONC 30.5 g/dL (32.0-36.0); MEAN CORPUSCULAR VOLUME 97.1 fL (79-99); MONOCYTES % (AUTO) 7.5 % (3.0-13.0); NEUTROPHILS % (AUTO) 83.3 % (40.0-77.0); NUCLEATED RED BLOOD CELLS 0.2 % (0.0-0.19); PLATELET COUNT (AUTO) 64 K/uL (130-400); RED BLOOD CELL COUNT(AUTO) 4.09 MIL/uL (4.50-6.20); RED CELL DISTRIBUTION WIDTH 18.7 % (11.0-15.5); WHITE BLOOD COUNT (AUTO) 11.5 K/uL (4.8-10.8)
[2022-09-24 04:28] LABS: CREATININE 1.5 mg/dL (0.5-1.5)
[2022-09-24] MEDS: INSULIN HUMULIN R 100 UNIT/ML 3ML SQ SCH ×4 (07:03→21:00)
[2022-09-24] MEDS: FAMOTIDINE 20MG VIAL IV SCH (08:04)
[2022-09-24] MEDS: DRONABINOL 2.5 MG CAP PO SCH (09:00)
[2022-09-24] MEDS: ATORVASTATIN 20 MG TABLET PO SCH (09:00)
[2022-09-24] MEDS: ASPIRIN 81 MG EC TAB PO SCH (09:00)
[2022-09-24] MEDS: SERTRALINE HCL 50 MG TABLET PO SCH (09:00)
[2022-09-24] MEDS ORDERED: LACTATED RINGERS 1000ML 1,000 ML IV SCH (10:00)
[2022-09-24] MEDS: LACTATED RINGERS 1000ML IV SCH (11:16)
[2022-09-24] MEDS ORDERED: FUROSEMIDE 20MG VIAL IV SCH (13:30)
[2022-09-24] MEDS: VANCOMYCIN 1G/250ML KIT 250 ML IV SCH (13:38)
[2022-09-24] MEDS: MIRTAZAPINE 15 MG TABLET PO SCH (21:15)
[2022-09-25] VITALS (44 sets, daily range): BP systolic 111–144; BP diastolic 55–85
[2022-09-25] MEDS: ZOSYN 3.375GM +NS 50ML IVPB SCH ×3 (00:16→17:00)
[2022-09-25 05:33] LABS: BASOPHILS % (AUTO) 0.1 % (0.0-5.0); EOSINOPHILS % (AUTO) 0.1 % (0.0-8.0); HEMATOCRIT 39.2 % (42-54); LYMPHOCYTES % (AUTO) 9.7 % (21.0-51.0); MEAN CORPUSCULAR HEMOGLOBIN 29.9 pg (27.0-33.0); MEAN CORPUSCULAR HGB CONC 31.4 g/dL (32.0-36.0); MEAN CORPUSCULAR VOLUME 95.1 fL (79-99); NEUTROPHILS % (AUTO) 81.5 % (40.0-77.0); NUCLEATED RED BLOOD CELLS 0.2 % (0.0-0.19); PLATELET COUNT (AUTO) 61 K/uL (130-400); RED BLOOD CELL COUNT(AUTO) 4.12 MIL/uL (4.50-6.20); RED CELL DISTRIBUTION WIDTH 18.4 % (11.0-15.5); WHITE BLOOD COUNT (AUTO) 8.7 K/uL (4.8-10.8)
[2022-09-25 05:38] LABS: CREATININE 1.6 mg/dL (0.5-1.5); POTASSIUM 3.6 mmol/L (3.5-5.1)
[2022-09-25] MEDS: INSULIN HUMULIN R 100 UNIT/ML 3ML SQ SCH ×4 (06:33→21:00)
[2022-09-25] MEDS: DEXTROSE 5 % AND 0.9 % NACL 1,000 ML IV SCH (08:18)
[2022-09-25] MEDS: ATORVASTATIN 20 MG TABLET PO SCH (08:44)
[2022-09-25] MEDS: SERTRALINE HCL 50 MG TABLET PO SCH (08:44)
[2022-09-25] MEDS: DRONABINOL 2.5 MG CAP PO SCH (08:44)
[2022-09-25] MEDS: ASPIRIN 81 MG EC TAB PO SCH (08:44)
[2022-09-25] MEDS: MIDODRINE HCL 5 MG TABLET PO SCH ×3 (08:44→21:18)
[2022-09-25] MEDS: FAMOTIDINE 20MG VIAL IV SCH (08:44)
[2022-09-25] MEDS: VANCOMYCIN 1G/250ML KIT 250 ML IV SCH (14:00)
[2022-09-25] MEDS: POTASSIUM CHLORIDE 20MEQ/100ML 100 ML IV PRN (16:06)
[2022-09-25] MEDS: MIRTAZAPINE 15 MG TABLET PO SCH (21:18)
[2022-09-26] VITALS (7 sets, daily range): BP systolic 112–130; BP diastolic 70–94
[2022-09-26] MEDS: ZOSYN 3.375GM +NS 50ML IVPB SCH ×3 (00:47→18:38)
[2022-09-26] MEDS: DEXTROSE 5 % AND 0.9 % NACL 1,000 ML IV SCH (05:01)
[2022-09-26] MEDS: INSULIN HUMULIN R 100 UNIT/ML 3ML SQ SCH ×4 (07:30→21:00)
[2022-09-26] MEDS: ERGOCALCIFEROL (VITAMIN D2) 50,000 UNIT CAPSULE PO SCH ×2 (09:00→09:11)
[2022-09-26] MEDS: ATORVASTATIN 20 MG TABLET PO SCH ×2 (09:00→09:12)
[2022-09-26] MEDS: ASPIRIN 81 MG EC TAB PO SCH ×2 (09:00→09:12)
[2022-09-26] MEDS: DRONABINOL 2.5 MG CAP PO SCH ×2 (09:00→09:12)
[2022-09-26] MEDS: SERTRALINE HCL 50 MG TABLET PO SCH ×2 (09:00→09:12)
[2022-09-26] MEDS: MIDODRINE HCL 5 MG TABLET PO SCH ×3 (09:00→21:00)
[2022-09-26] MEDS: FAMOTIDINE 20MG VIAL IV SCH (09:11)
[2022-09-26] MEDS: VANCOMYCIN 1G/250ML KIT 250 ML IV SCH (15:12)
[2022-09-26] MEDS: MIRTAZAPINE 15 MG TABLET PO SCH (21:00)
[2022-09-27 00:07] LABS: BASOPHILS % (AUTO) 0.1 % (0.0-5.0); EOSINOPHILS % (AUTO) 0.1 % (0.0-8.0); MEAN CORPUSCULAR HEMOGLOBIN 29.6 pg (27.0-33.0); MEAN CORPUSCULAR HGB CONC 31.7 g/dL (32.0-36.0); MEAN CORPUSCULAR VOLUME 93.3 fL (79-99); MONOCYTES % (AUTO) 8.9 % (3.0-13.0); NEUTROPHILS % (AUTO) 78.3 % (40.0-77.0); NUCLEATED RED BLOOD CELLS 1.1 % (0.0-0.19); PLATELET COUNT (AUTO) 74 K/uL (130-400); RED CELL DISTRIBUTION WIDTH 18.9 % (11.0-15.5); WHITE BLOOD COUNT (AUTO) 8.1 K/uL (4.8-10.8)
[2022-09-27 00:21] LABS: CREATININE 1.8 mg/dL (0.5-1.5); PHOSPHORUS 2.5 mg/dL (2.5-4.9)
[2022-09-27] MEDS: DEXTROSE 5 % AND 0.9 % NACL 1,000 ML IV SCH (00:49)
[2022-09-27] MEDS: POTASSIUM CHLORIDE 20MEQ/100ML 100 ML IV PRN ×2 (00:50→13:43)
[2022-09-27] MEDS: ZOSYN 3.375GM +NS 50ML IVPB SCH ×3 (02:43→17:01)
[2022-09-27 03:17] VITALS: BP 125/93
[2022-09-27] MEDS: INSULIN HUMULIN R 100 UNIT/ML 3ML SQ SCH ×4 (05:46→20:52)
[2022-09-27 06:36] VITALS: BP 123/77
[2022-09-27] MEDS ORDERED: LACTATED RINGERS 1000ML 1,000 ML IV SCH (08:00)
[2022-09-27] MEDS: ATORVASTATIN 20 MG TABLET PO SCH (09:19)
[2022-09-27] MEDS: ASPIRIN 81 MG EC TAB PO SCH (09:19)
[2022-09-27] MEDS: MIDODRINE HCL 5 MG TABLET PO SCH ×3 (09:19→21:17)
[2022-09-27] MEDS: SERTRALINE HCL 50 MG TABLET PO SCH (09:19)
[2022-09-27] MEDS: DEXTROSE 5 %-0.45 % NACL 1,000 ML IV SCH ×3 (09:19→21:14)
[2022-09-27] MEDS: DRONABINOL 2.5 MG CAP PO SCH (09:20)
[2022-09-27] MEDS: FAMOTIDINE 20MG VIAL IV SCH (09:20)
[2022-09-27 11:48] VITALS: BP 122/91
[2022-09-27] MEDS: VANCOMYCIN 1G/250ML KIT 250 ML IV SCH (14:28)
[2022-09-27 15:54] VITALS: BP 121/67
[2022-09-27 19:07] VITALS: BP 117/74
[2022-09-27] MEDS: MIRTAZAPINE 15 MG TABLET PO SCH (21:00)
[2022-09-27 23:39] VITALS: BP 117/59
[2022-09-28] MEDS: ZOSYN 3.375GM +NS 50ML IVPB SCH ×2 (01:08→08:10)
[2022-09-28] MEDS: DEXTROSE 5 %-0.45 % NACL 1,000 ML IV SCH ×2 (03:53→11:18)
[2022-09-28 03:57] VITALS: BP 121/80
[2022-09-28 04:29] LABS: BASOPHILS % (AUTO) 0.3 % (0.0-5.0); EOSINOPHILS % (AUTO) 0.8 % (0.0-8.0); HEMATOCRIT 39.9 % (42-54); LYMPHOCYTES % (AUTO) 15.8 % (21.0-51.0); MEAN CORPUSCULAR HEMOGLOBIN 29.7 pg (27.0-33.0); MEAN CORPUSCULAR HGB CONC 31.8 g/dL (32.0-36.0); MEAN CORPUSCULAR VOLUME 93.2 fL (79-99); MONOCYTES % (AUTO) 9.1 % (3.0-13.0); NUCLEATED RED BLOOD CELLS 1.5 % (0.0-0.19); PLATELET COUNT (AUTO) 66 K/uL (130-400); RED BLOOD CELL COUNT(AUTO) 4.28 MIL/uL (4.50-6.20); RED CELL DISTRIBUTION WIDTH 18.8 % (11.0-15.5); WHITE BLOOD COUNT (AUTO) 7.9 K/uL (4.8-10.8)
[2022-09-28 04:44] LABS: CREATININE 1.6 mg/dL (0.5-1.5)
[2022-09-28 05:25] LABS: POTASSIUM 2.9 mmol/L (3.5-5.1)
[2022-09-28] MEDS: POTASSIUM CHLORIDE 20MEQ/100ML 100 ML IV PRN ×2 (05:34→07:46)
[2022-09-28] MEDS: INSULIN HUMULIN R 100 UNIT/ML 3ML SQ SCH ×3 (06:34→15:26)
[2022-09-28 07:43] VITALS: BP 116/85
[2022-09-28] MEDS: FAMOTIDINE 20MG VIAL IV SCH (08:10)
[2022-09-28] MEDS: MIDODRINE HCL 5 MG TABLET PO SCH ×2 (08:11→13:24)
[2022-09-28] MEDS: DRONABINOL 2.5 MG CAP PO SCH (08:11)
[2022-09-28] MEDS: ATORVASTATIN 20 MG TABLET PO SCH (08:11)
[2022-09-28] MEDS: ASPIRIN 81 MG EC TAB PO SCH (08:11)
[2022-09-28] MEDS: SERTRALINE HCL 50 MG TABLET PO SCH (08:11)
[2022-09-28] MEDS: VANCOMYCIN 1G/250ML KIT 250 ML IV SCH (13:23)
[2022-09-28 16:18] VITALS: BP 116/66
== END 2022-09-28 18:48 | disposition hospice, home (50) | DRG 853 ==
LOC: 2BH 14:15 → 2DH 09-25 17:54
PROVIDERS: ADMIT Internal Medicine; ATTEND Internal Medicine
PROC: B4101ZZ Fluoroscopy of Abdominal Aorta using Low Osmolar Contrast (ICD-10-PCS; principal; 2022-09-21)
PROC: 04V03DZ Restriction of Abdominal Aorta with Intraluminal Device, Percutaneous Approach (ICD-10-PCS; 2022-09-21)
PROC: 30233N1 Transfusion of Nonautologous Red Blood Cells into Peripheral Vein, Percutaneous Approach (ICD-10-PCS; 2022-09-21)
PROC: 0BH17EZ Insertion of Endotracheal Airway into Trachea, Via Natural or Artificial Opening (ICD-10-PCS; 2022-09-21)
PROC: 5A1935Z Respiratory Ventilation, Less than 24 Consecutive Hours (ICD-10-PCS; 2022-09-21)
PROC: 5A09357 Assistance with Respiratory Ventilation, Less than 24 Consecutive Hours, Continuous Positive Airway Pressure (ICD-10-PCS; 2022-09-22)
DX: A41.9 Sepsis, unspecified organism (principal); I50.43 Acute on chronic combined systolic (congestive) and diastolic (congestive) heart failure; R65.21 Severe sepsis with septic shock; J96.01 Acute respiratory failure with hypoxia; I13.0 Hypertensive heart and chronic kidney disease with heart failure and stage 1 through stage 4 chronic kidney disease, or unspecified chronic kidney disease; N17.9 Acute kidney failure, unspecified; D62 Acute posthemorrhagic anemia; E46 Unspecified protein-calorie malnutrition; E87.20 Acidosis, unspecified; N39.0 Urinary tract infection, site not specified; I71.43 Infrarenal abdominal aortic aneurysm, without rupture; I95.9 Hypotension, unspecified; N50.89 Other specified disorders of the male genital organs; I25.5 Ischemic cardiomyopathy; I25.10 Atherosclerotic heart disease of native coronary artery without angina pectoris; I08.1 Rheumatic disorders of both mitral and tricuspid valves; D69.6 Thrombocytopenia, unspecified; E11.22 Type 2 diabetes mellitus with diabetic chronic kidney disease; E78.5 Hyperlipidemia, unspecified; E86.0 Dehydration; E11.51 Type 2 diabetes mellitus with diabetic peripheral angiopathy without gangrene; I25.82 Chronic total occlusion of coronary artery; I49.3 Ventricular premature depolarization; K40.90 Unilateral inguinal hernia, without obstruction or gangrene, not specified as recurrent; N18.30 Chronic kidney disease, stage 3 unspecified; N32.89 Other specified disorders of bladder; R62.7 Adult failure to thrive; Z82.0 Family history of epilepsy and other diseases of the nervous system; Z82.49 Family history of ischemic heart disease and other diseases of the circulatory system; Z83.3 Family history of diabetes mellitus; Z86.79 Personal history of other diseases of the circulatory system; Z87.891 Personal history of nicotine dependence; Z68.21 Body mass index [BMI] 21.0-21.9, adult
CPT/HCPCS: 34705; 34713; 36415; 71045; 76870; 80048; 80053; 80202; 81001; 82435; 82533; 82550; 82803; 82947; 82948; 83605; 83735; 83874; 83880; 84100; 84132; 84145; 84295; 84443; 84484; 85018; 85025; 85027; 86850; 86900; 86901; 86923; 87040; 87088; 94002; 94003; 97039; A4344; C1725; C1760; C1769; C1887; C1894; G0378; J0171; J0690; J1644; J2370; J2543; J2704; J2720; J3010; J3370; J3475; J3480; J3490; P9016; Q0167; Q9967